=== PATIENT | female | born 2000 | race Hispanic/Latino ===

== ENCOUNTER 2024-07-06 15:29 | Outpatient (CLI) | payer OTHER | END 2024-07-06 15:30 | disposition home or self-care (01) | LOC: CSHULT 15:29 | PROVIDERS: ATTEND Advanced Practice Midwife | DX: Z34.80 Encounter for supervision of other normal pregnancy, unspecified trimester (principal); Z3A.11 11 weeks gestation of pregnancy | CPT/HCPCS: 76805 ==